=== PATIENT | female | born 1985 | race Caucasian/White ===

== ENCOUNTER 2017-12-23 16:17 | Inpatient (IN) | payer BC ==
[~2017-12-23] VITALS: Ht 161.3 cm; Wt 80.3 kg
[~2017-12-23 16:17] MED LIST: DOX100 PO; FAMO-1 PO; FLU150 PO; NAP550 PO; NO MEDS; PAN40 PO; PER PO; PRO25 PO
[2017-12-23 17:10] LABS: PLATELET COUNT, AUTOMATED 247 K/uL (150-450)
[2017-12-23 17:30] VITALS: BP 157/90; Ht 161.3 cm; Wt 80.3 kg
[2017-12-23] MEDS ORDERED: PREN-127 PO (17:43)
[2017-12-23] MEDS ORDERED: COLL1POW (17:43)
[2017-12-23] MEDS ORDERED: ZOLPIDEM TARTRATE 5 MG TAB PO PRN (19:10)
[2017-12-23] MEDS ORDERED: cefOXitin/DEX(*) 2GM/50ML PREM 50 ML IVPB PRN (19:10)
[2017-12-23] MEDS ORDERED: LIDOCAINE/SOD BICARB 8.4% SYR SC PRN (19:10)
[2017-12-23] MEDS ORDERED: TERBUTALINE SULF 1 MG/ML VIAL SUBQ PRN (19:10)
[2017-12-23] MEDS ORDERED: LIDOCAINE 1% LOCAL 300 MG/30ML INJ PRN (19:10)
[2017-12-23] MEDS ORDERED: METOCLOPRAMIDE 10 MG/2 ML SDV IVP PRN (19:10)
[2017-12-23] MEDS ORDERED: OXYTOCIN 30 UNIT/D5LR 500 ML 500 ML IV PRN (19:10)
[2017-12-23] MEDS ORDERED: DINOPROSTONE 10 MG INSERT PV ONE (19:10)
[2017-12-23] MEDS ORDERED: FLUSH 10 ML SYR IVP PRN (19:10)
[2017-12-23] MEDS ORDERED: LR(*) 1000 ML BAG 1,000 ML IV PRN (19:10)
[2017-12-23] MEDS ORDERED: FAMOTIDINE(*) 20MG/50ML PREMIX 50 ML IVPB PRN (19:10)
--- NOTE | 2017-12-23 21:07 | History & Physical ---
History of Present Illness Age of Patient: 32 : 1 Para or TPAL: 0 EDC per LMP: Jan 11, 2018 Estimated Gestational Age: 37.2 Chief Complaint hypertension in History of Present Illness Presented to office today for routine care. Reported that over the weekend and especially yesterday was not feeling herself, feeling bloated, swollen, fatigued and "off". Her BP in office today was elevated with SBP of 170. Her prior visits have all been normal and her BP has not been elevated prior. She denies having a severe headache or any RUQ abdominal pain or visual changes. Her last cervix exam was last week: 1cm/50% and GBS positive. She was sent to labor and delivery for evaluation. has been uncomplicated and her health is good although there was a mention of a cervical polyp and her last pap was 05/2017 and negative. She is Rh negative. Past Medical, Surgical, Family and Obstetric Histories reviewed. Please see ACOG chart. History Patient's Blood Type: A Negative Rubella Status: Immune Group B Strep Screen: Positive Past Medical History: cervical polyp Allergies: Coded Allergies: No Known Drug Allergies (Verified , 05/20/07) Med Rec Home Meds Reported Medications Collagen, Hydrolysate (Bovine) (Collagen Hydrolysate) 100 % Powder 12/23/17 Vits W-Ca,Fe,Fa(<1MG) ( VITAMINS) 1 Each Tablet, 1 EACH PO DAILY, TAB 12/23/17 [No Meds] No Conflict Check 05/20/07 Discontinued Reported Medications Pantoprazole Sod (Protonix) 40 Mg Tabec, 40 MG PO QDAY 05/20/07 Famotidine (Pepcid) 20 Mg Tablet, 20 MG PO BID 05/20/07 Oxycodone/Acetaminophen (OXYCODONE/ACETAMINOPHEN 5MG/325 MG) 5 Mg/325 Mg Tab, 1 TAB PO Q4-6H 05/20/07 Promethazine Hcl (Phenergan) 25 Mg Tab, 25 MG PO Q6H 05/20/07 Oxycodone/Acetaminophen (OXYCODONE/ACETAMINOPHEN 5MG/325 MG) 5 Mg/325 Mg Tab, 0 PO Q6H, #20 1 TABLET EVERY 6 HOURS NEEDED FOR MODERATE PAIN 05/20/07 Naproxen Sodium (Anaprox Ds) 550 Mg Tab, 550 MG PO BID, #20 1 TAB TWICE A DAY NEEDED FOR PAIN 05/20/07 Doxycycline Hyclate (Vibramycin) 100 Mg Cap, 100 MG PO BID for 10 Days 1 TAB TWICE A DAY FOR 10 DAYS 05/20/07 Fluconazole (Diflucan) 150 Mg Tab, 150 MG PO ONCE 1 DOSE 05/20/07 Review of Systems Other as per HPI Exam General Exam Vital Signs Vital Signs Date Time Temp Pulse Resp B/P (MAP) Pulse Ox O2 Delivery O2 Flow Rate FiO2 12/23/17 17:30 97.9 79 18 157/90 (112) 96 Room Air General Apperance: Alert/Awake/No Acute Distress Neuro: No Gross deficits, Other Cardiovascular: Regular Rate and Rhythm Respiratory: No Respiratory Distress, Clear to Auscultation Abdomen: Soft, Non-Tender, Non-Distended, RUQ Non-Tender, Other (vtx by elvis) : Normal Extremities: Reflexes (3+), Edema (2+) Integumentary: Skin Intact without Lesions or Rash Psychological: Alert & Oriented X3, Appropriate Mood & Affect Vaginal Discharge/Fluid?: Bloody Show Cervical Dialation: 1.5 Cervical Effacement (%): 75 Cervical Consistency: Soft Cervical Position: Posterior Presentation: Vertex Uterine Contractions(Q min): 2 Uterine Contraction Strength: Mild Fetus Heart Tone Variabilty: Moderate FHT Accelerations: 15X15 FHT Category: I Medical Decision Making Data Points Result Diagram: 12/23/17 1659 12/23/17 165 Hematology Test 12/23/17 16:50 12/23/17 16:59 Urine Random Creatinine 10.0 mg/dl Urine Random Total Protein 25 mg/dl (<11) Red Blood Count 4.17 M/uL (4.17-5.56) Mean Corpuscular Volume 88.7 fL (80.0-96.0) Mean Corpuscular Hemoglobin 31.1 pg (26.0-33.0) Mean Corpuscular Hemoglobin Concent 35.1 g/dL (32.0-36.0) Red Cell Distribution Width 13.2 % (11.5-14.5) Mean Platelet Volume 8.6 fL (7.2-11.1) Neutrophils (%) (Auto) 77.7 % (39.4-72.5) Lymphocytes (%) (Auto) 14.1 % (17.6-49.6) Monocytes (%) (Auto) 6.9 % (4.1-12.4) Eosinophils (%) (Auto) 0.8 % (0.4-6.7) Basophils (%) (Auto) 0.5 % (0.3-1.4) Nucleated RBC Relative Count (auto) 0.0 /100WBC Neutrophils # (Auto) 11.0 K/uL (2.0-7.4) Lymphocytes # (Auto) 2.0 K/uL (1.3-3.6) Monocytes # (Auto) 1.0 K/uL (0.3-1.0) Eosinophils # (Auto) 0.1 K/uL (0.0-0.5) Basophils # (Auto) 0.1 K/uL (0.0-0.1) Nucleated RBC Absolute Count (auto) 0.00 K/uL Sodium Level 133 mmol/L (137-145) Potassium Level 3.8 mmol/L (3.5-5.0) Chloride Level 102 mmol/L (98-107) Carbon Dioxide Level 24 mmol/L (22-31) Blood Urea Nitrogen 11 mg/dl (7-18) Creatinine 0.60 mg/dl (0.52-1.04) Glomerular Filtration Rate Calc > 60.0 Random Glucose 80 mg/dl (75-110) Uric Acid 5.1 mg/dl (2.5-7.5) Calcium Level 8.9 mg/dl (8.4-10.2) Total Bilirubin 0.2 mg/dl (0.2-1.3) Aspartate Amino Transf (AST/SGOT) 37 U/L (0-35) Alanine Aminotransferase (ALT/SGPT) 48 U/L (0-56) Alkaline Phosphatase 133 U/L (0-126) Lactate Dehydrogenase 521 U/L (0-590) Total Protein 5.4 g/dl (6.3-8.2) Albumin 2.9 g/dl (3.5-5.0) Chemistry Test 12/23/17 16:50 12/23/17 16:59 Urine Random Creatinine 10.0 mg/dl Urine Random Total Protein 25 mg/dl (<11) White Blood Count 14.2 k/uL (4.5-11.0) Red Blood Count 4.17 M/uL (4.17-5.56) Hemoglobin 13.0 g/dL (12.0-16.0) Hematocrit 37.0 % (34.0-47.0) Mean Corpuscular Volume 88.7 fL (80.0-96.0) Mean Corpuscular Hemoglobin 31.1 pg (26.0-33.0) Mean Corpuscular Hemoglobin Concent 35.1 g/dL (32.0-36.0) Red Cell Distribution Width 13.2 % (11.5-14.5) Platelet Count 247 K/uL (150-450) Mean Platelet Volume 8.6 fL (7.2-11.1) Neutrophils (%) (Auto) 77.7 % (39.4-72.5) Lymphocytes (%) (Auto) 14.1 % (17.6-49.6) Monocytes (%) (Auto) 6.9 % (4.1-12.4) Eosinophils (%) (Auto) 0.8 % (0.4-6.7) Basophils (%) (Auto) 0.5 % (0.3-1.4) Nucleated RBC Relative Count (auto) 0.0 /100WBC Neutrophils # (Auto) 11.0 K/uL (2.0-7.4) Lymphocytes # (Auto) 2.0 K/uL (1.3-3.6) Monocytes # (Auto) 1.0 K/uL (0.3-1.0) Eosinophils # (Auto) 0.1 K/uL (0.0-0.5) Basophils # (Auto) 0.1 K/uL (0.0-0.1) Nucleated RBC Absolute Count (auto) 0.00 K/uL Glomerular Filtration Rate Calc > 60.0 Uric Acid 5.1 mg/dl (2.5-7.5) Calcium Level 8.9 mg/dl (8.4-10.2) Total Bilirubin 0.2 mg/dl (0.2-1.3) Aspartate Amino Transf (AST/SGOT) 37 U/L (0-35) Alanine Aminotransferase (ALT/SGPT) 48 U/L (0-56) Alkaline Phosphatase 133 U/L (0-126) Lactate Dehydrogenase 521 U/L (0-590) Total Protein 5.4 g/dl (6.3-8.2) Albumin 2.9 g/dl (3.5-5.0) Urinalysis Test 12/23/17 16:50 Urine Random Creatinine 10.0 mg/dl Urine Random Total Protein 25 mg/dl (<11) VTE Prophylasis: Adult Deep Vein Thrombosis/Pulmonary: No Pharmacological Contraindicati: Pt at Low Risk for VTE Mechanical Contraindications: Pt at Low Risk for VTE Assessment and Plan Problems: (1) Pre-eclampsia during in third trimester, antepartum Assessment & Plan: No severe features as of yet. Slight 3 point elevation in her AST, normal platelets, but significant proteinuria meeting criteria for pre- eclampsia and induction. Will consider magnesium if she develops severe features. Will recheck the labs in the AM. Developed a plan for Cervidil ripening overnight followed by Pitocin in the AM. Reviewed risks and benefits of delivery and plan with pt and her . They understand the objectives and goals of her treatment plan and risk of worsening and as a consequence if needed. (2) Rh negative state in antepartum period Assessment & Plan: Received Rhogam in September. Will give as indicated. (3) Group B streptococcal carriage complicating Assessment & Plan: PCN prophylaxis. CECILIA GROVE MD Dec 23, 2017 21:07
[2017-12-24] MEDS ORDERED: PENICILLIN G 5 MILLUN/100 ML 100 ML ONE (00:13)
[2017-12-24] MEDS ORDERED: PENICILLIN G 5 MILLUN/100 ML 100 ML IVPB ONE (00:15)
[2017-12-24] MEDS: PENICILLIN G 2.5 MILLUN/100 ML 100 ML IVPB SCH ×4 (04:03→17:09)
[2017-12-24] MEDS ORDERED: OXYTOCIN 30 UNIT/D5LR 500 ML 500 ML IV PRN (06:13)
[2017-12-24 07:11] LABS: PLATELET COUNT, AUTOMATED 240 K/uL (150-450)
[2017-12-24] MEDS: fentaNYL CITR 100 MCG/2 ML AMP IVP PRN ×3 (17:53→21:22)
[2017-12-24] MEDS ORDERED: ONDANSETRON 4 MG/2 ML VIAL IVP PRN (19:40)
[2017-12-24] MEDS ORDERED: PENICILLIN G 2.5 MILLUN/100 ML 100 ML IVPB SCH (20:00)
[2017-12-24] MEDS ORDERED: FENTANYL/ROPIVACAINE 100 ML BAG EPI PRN (21:55)
[2017-12-24] MEDS ORDERED: LIDOCAINE/PF 2% 200MG/10ML AMP 200 MG/10 ML AMPUL EPI PRN (21:55)
[2017-12-24] MEDS ORDERED: ePHEDrine 25 MG/5 ML DISP.SYR IVP PRN (21:55)
[2017-12-24] MEDS ORDERED: LIDO/EPI 2% MPF 1:200,000 20ML EPI PRN (21:55)
[2017-12-24] MEDS ORDERED: fentaNYL CITR 100 MCG/2 ML AMP IT PRN (21:55)
[2017-12-24] MEDS ORDERED: BUPIVACAINE 0.25% MPF INJ EPI PRN (21:55)
[2017-12-24] MEDS ORDERED: EPIDURAL KEYS XX PRN (22:00)
--- NOTE | 2017-12-24 22:35 | Labor Progress Note ---
Labor Subjective Progress Notes Subjective Doing good. Reports no headaches or visual changes. "Getting tired, requesting epidural. Feeling Movement?: No Vaginal Discharge/Fluid: Clear Fluid Labor Pain: Moderate Neurological: No Headache, No Other Eyes: No Visual Disturbances Labor Objective Vital Signs Vital Signs Date Time Temp Pulse Resp B/P (MAP) Pulse Ox O2 Delivery O2 Flow Rate FiO2 12/23/17 17:30 97.9 79 18 157/90 (112) 96 Room Air Vaginal Discharge/Fluid?: Bloody Show, Clear Fluid Cervical Dialation: 4 Cervical Effacement (%): 80 Cervical Consistency: Soft Cervical Position: Anterior Station: -2 Presentation: Vertex Uterine Contractions(Q min): 3 Uterine Contraction Strength: Moderate UC Resting Tone: Soft Fetus Heart Tone Variabilty: Moderate FHT Accelerations: 15X15 FHT Decelerations: None FHT Category: I Other Result Diagram: 12/24/17 0703 12/24/17 0703 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 Will increase oxytocin to get adequete MVU. OLENA PARIKH DO Dec 24, 2017 22:35
--- NOTE | 2017-12-25 01:59 | Anesthesia OB Pre-Anes Eval ---
History of Present Illness Anesthesia Start Date: Dec 25, 2017 Anesthesia Start Time: 00:45 OB Anesthesia Diagnosis: gestational hypertension, induction - medical Current Complication: gestational hypertention, other (Severe edema in feet & back) Complications: None known EDC: Jan 09, 2018 : 1 Para: 0 Vital Signs: Vital Signs Date Time Temp Pulse Resp B/P (MAP) Pulse Ox O2 Delivery O2 Flow Rate FiO2 12/23/17 17:30 97.9 79 18 157/90 (112) 96 Room Air Pain Ratin Heart Tones: WNL Result Diagram: 12/24/17 0712/24/17702 Height (Inches): 63.50 Weight (Pounds): 177 BMI Calculated: 30.86 Past Medical History Attended Childbirth Classes?: No Hx Anesthesia Reactions: No Hx Family Anesthesia Reaction: No Current Medications: pitocin, pain medication (Fentenyl IV) Home Meds Reported Medications Collagen, Hydrolysate (Bovine) (Collagen Hydrolysate) 100 % Powder 12/23/17 Vits W-Ca,Fe,Fa(<1MG) ( VITAMINS) 1 Each Tablet, 1 EACH PO DAILY, TAB 12/23/17 [No Meds] No Conflict Check 05/20/07 Discontinued Reported Medications Pantoprazole Sod (Protonix) 40 Mg Tabec, 40 MG PO QDAY 05/20/07 Famotidine (Pepcid) 20 Mg Tablet, 20 MG PO BID 05/20/07 Oxycodone/Acetaminophen (OXYCODONE/ACETAMINOPHEN 5MG/325 MG) 5 Mg/325 Mg Tab, 1 TAB PO Q4-6H 05/20/07 Promethazine Hcl (Phenergan) 25 Mg Tab, 25 MG PO Q6H 05/20/07 Oxycodone/Acetaminophen (OXYCODONE/ACETAMINOPHEN 5MG/325 MG) 5 Mg/325 Mg Tab, 0 PO Q6H, #20 1 TABLET EVERY 6 HOURS NEEDED FOR MODERATE PAIN 05/20/07 Naproxen Sodium (Anaprox Ds) 550 Mg Tab, 550 MG PO BID, #20 1 TAB TWICE A DAY NEEDED FOR PAIN 05/20/07 Doxycycline Hyclate (Vibramycin) 100 Mg Cap, 100 MG PO BID for 10 Days 1 TAB TWICE A DAY FOR 10 DAYS 05/20/07 Fluconazole (Diflucan) 150 Mg Tab, 150 MG PO ONCE 1 DOSE 05/20/07 Allergies: Coded Allergies: No Known Drug Allergies (Verified , 05/20/07) Anesthesia OB ROS Neurological: No migraines/headaches, No seizures, No neuropathy Eyes ROS: other (wearing glasses) ENT: Denies Tooth caps, Denies Loose teeth, Denies Chipped teeth, Denies Dentures, Denies Bridges, Denies Retainers, Denies Veneers, Denies Implants, Denies Tongue ring Pulmonary: No asthma, No smoker (pks/day/yrs), other (Pt. states she has had resp problems last 3 weeks.) Airway Class: ll Cardiovascular ROS: No edema, No arrhythmia, other GI ROS: clear liquids Last Solids Date: Dec 24, 2017 Last Solids Time: 07:00 ROS: No Herpes, No STD(s), No Liver Disease, No Renal Disease Endocrine ROS: No diabetes, No gestational diabetes, No thyroid disorder Musculoskeletal ROS: No low back pain, No low back injury, No scoliosis, No other ASA Classification: 2 Assessment and Plan Anesthesia Plan: CSE Assessment Past Medical, Surgical, Family and Obstetric Histories reviewed. Please see ACOG chart. Epidural anesthesia risks, complications and benefits explained to patient's satisfaction for labor and vaginal delivery and/or section. General anesthesia risks and benefits explained to patient's satisfaction. Pt. states she had wanted to do labor "all natural" but has now changed her mind. Questions invited, none asked. NANDA XAVIER CRNA Dec 25, 2017 01:59
[2017-12-25] MEDS ORDERED: BUPIVACAINE 0.5% INJ 30ML VIAL ONE (02:09)
--- NOTE | 2017-12-25 02:18 | Procedure Note ---
Anesthetic Placement Note Permit for Anesthesia Signed: Yes Anesthesia Technique: Patient Sitting Anesthesia Prep: Chlorhexidine Interspace: L 3-4 Local Anesthetic: 1% Lidocaine, 25 Gauge Needle Amount Local - cc's: 3 Anesthesia Needle: 17g Touhy/Schliff Anesthesia Attempts: 1 Loss of Resistance: Air Depth of DALE (cm): 6 Epidural Needle Placement: No CSF, No Blood, No Parasthesia Intrathecal Needle: 27 Gauge Pencan Cerebral Spinal Fluid: Yes, Clear Catheter Insertion (cm): 8 Catheter Type: Welch - Spring Wound Epidural Dressing: Tegaderm, Tape, Adhesive Vaughan Anesthesia Tray: Lot Number ([id number]), Expiration Date (2019-01-20), Reference Number ([id number]) Anesthesia Medications: Intrathecal Dose: mcg Fentanyl (15), mg Marcaine MPF (1.75), Time (0104) Epidural Test Dose: 1.5 Lido/Epi (1:200,000), Dose - mL (2), Time (0123), Negative Epidural Loading Dose: 0.2% Ropivicaine, With Fentanyl 2mcg/ml, Dose - ml (6), Time (0124) Epidural Infusion: 0.2% Ropivicaine, With Fentanyl 2mcg/ml, Start Time: (0124) Epidural Pump Setting: Bolus Dose - mL (5), Lockout - Minutes (20), Maintenance Rate - mL/hr (6), Maximum per Hour - mL (21) Complications: None Comment: Became comfortable within 5-10 minutes. Encouraged to sleep. NANDA XAVIER CRNA Dec 25, 2017 02:18
--- NOTE | 2017-12-25 02:20 | Anesthesia Progress Note ---
Progress/Maintenance Anesthesia Note Date: Dec 25, 2017 Anesthesia Note Time: 02:00 Pain Intensity: 0 Pump: On Pump Rate (ML/HR): 3 Sensory Level: T-12 Motor Level: Bending Knees-Bilateral Dilatation: 10 Position: Semi-Fowlers Assessment and Plan Assessment Complete in dilation. Pump decreased to 3 ml/hr as pt. does not feel contractions. Being instructed in pushing by NANDA DARDEN CRNA Dec 25, 2017 02:20
--- NOTE | 2017-12-25 05:15 | Anesthesia Progress Note ---
Progress/Maintenance Anesthesia Note Date: Dec 25, 2017 Anesthesia Note Time: 05:00 Pain Intensity: 7 Pump: On Pump Rate (ML/HR): 5 Sensory Level: L4 Motor Level: Bending Knees-Bilateral Dilatation: 10 Position: Right, Tilt Drug Bolus: 0.5% Marcaine (4 ml), Other (Fentenyl 60 ml) Assessment and Plan Assessment Pt. feeling very tired from pushing, requesting more medication. Plan: to "labor down". Bolus given, Pump rate increased to 5 ml/hr. Anesthesia Stop Day: Dec 25, 2017 NANDA XAVIER CRNA Dec 25, 2017 05:15
--- NOTE | 2017-12-25 06:02 | Labor Progress Note ---
Labor Subjective Progress Notes Subjective Pt getting tired, but not feeling any change in pressure. 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 Pt started pushing around that time. Pushed so far for 2 hours. Pt had epidural rebolused. Will "labor down for about 1 hour as long as fetus tolerates laboring down and then resume pushing. Pt was counseled for operative vaginal delivery vs . She desires to rest for 0.5-1 hours and then attempt to resume pushing. Pt desires vaginal or operative vaginal delivery if possible. Pt's exam changed minimally since she started pushing, change in caput only. Difficult to feel position secondary to caput. Based on lack of descent informed the patient that in my opinion vaginal delivery is going to be difficult. Pt desires to continue with labor down and attempt. OLENA PARIKH DO Dec 25, 2017 06:02
[2017-12-25] MEDS ORDERED: CARBOPROST TROMETHAM 250MCG/ML IM ONLY ONE (09:10)
--- NOTE | 2017-12-25 09:51 | Anesthesia Progress Note ---
Progress/Maintenance Anesthesia Note Date: Dec 25, 2017 Anesthesia Note Time: 09:38 Pain Intensity: 0 Pump: Off Motor Level: Bending Knees-Bilateral Dilatation: 10 Position: Semi-Fowlers Drug Bolus: 0.5% Marcaine (5 ml), Other (Fentenyl 25 mcgs) Assessment and Plan Assessment Pt. pushing. Bolus with 0.5% Marcaine plain for delivery. Pt. was able to push well and had excellent tolerance for delivery and repair work. Empty syringe attached to epidural catheter and RN agrees to remove with ambulation of pt. Anesthesia Stop Day: Dec 25, 2017 Anesthesia Stop Time: 09:30 NANDA XAVIER CRNA Dec 25, 2017 09:51
[2017-12-25] MEDS ORDERED: INFLUENZA VIRUS VAC 0.5 ML SYR IM ONLY ONE (10:00)
[2017-12-25] MEDS ORDERED: GLYCERIN/WITCH HAZEL LEAF 1 PK TP PRN (10:00)
[2017-12-25] MEDS ORDERED: BENZOCAINE 20% 60 ML BTL TP PRN (10:00)
[2017-12-25] MEDS ORDERED: MAGNESIUM HYDROXIDE* 30ML UDCP PO PRN (10:00)
[2017-12-25] MEDS ORDERED: ACETAMINOPHEN 325 MG TAB PO PRN (10:00)
[2017-12-25] MEDS ORDERED: APAP/HYDROCODONE 325/5 TAB PO PRN (10:00)
[2017-12-25] MEDS ORDERED: LANOLIN OINT 7 GM TUBE TP PRN (10:00)
[2017-12-25] MEDS ORDERED: HYDROCORTISONE 2.5% CR 30GM TB PR PRN (10:00)
--- NOTE | 2017-12-25 10:18 | OB Delivery Note ---
Delivery Note Vaginal Delivery Type: Spont. Vaginal Delivery Delivery Date: Dec 25, 2017 Delivery Time: 09:26 Estimated Gestational Age(wks): 37 Delivery Anesthesia: Epidural Sex: Female Infant Weight (gms): 2795 Repair Needed: Laceration, Labial (left), 1st Degree Estimated Blood Loss: 100 Delivery Complications: Laceration Notes: Presented for IOL due to preeclampsia. Underwent Cervidil ripening on 12/23/17 at 1.5 cm progressing to 3 cm by morning of 12/24. By 1500 she had changed to 4cm but did not progress through that night but also was not getting an aggressive Pitocin stimulation due to evidence of tachysystole. IUPC placed at 2220 and adequate contraction pattern noted. Discussed operative delivery by c/ s and another check revealed 7cm. Epidural placed at 0100 on 12/25 and pt then resting. Progressed to 10 cm by 0200 and a period of pushing initiated. Very little progress made with pushing so allowed to rest and labor down. Pushing reinitiated at 0730 and progress noted. Brought baby to in MACO position. Perineum stabilized while delivered over first degree and left labia minora laceration. Placenta delivered intact and spontaneous and uterus massaged firm. Repair successful with 2-0 chromic for the first degree and 3-0 chromic for the labia reconstruction. BP remained stable in mild range. No complications. 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
[2017-12-25] MEDS: IBUPROFEN 800 MG TAB PO SCH ×2 (15:21→23:12)
[2017-12-25 18:00] VITALS: BP 130/70
[2017-12-25 20:10] VITALS: BP 150/75
[2017-12-25] MEDS: DOCUSATE CALCIUM 240 MG CAP PO SCH (20:28)
[2017-12-26 01:30] VITALS: BP 122/67
[2017-12-26 07:30] VITALS: BP 126/85
--- NOTE | 2017-12-26 08:11 | OB/GYN Progress Note ---
OB Subjective Progress Notes Subjective Doing well. Pain controlled and rested now. Bladder seems to be working well. BP mild since delivery. GI: NEG Nausea : Voiding Well Pain: Mild OB Objective Physical Exam Vital Signs Date Time Temp Pulse Resp B/P (MAP) Pulse Ox O2 Delivery O2 Flow Rate FiO2 12/26/17 01:30 98.7 82 18 122/67 (85) 93 Room Air General Appearance: Alert/Awake/No Acute Distress Neurological: No Gross deficits, Other Cardiovascular: Normal Rhythm & Peripheral Pulses, Regular Rate and Rhythm Respiratory: No Respiratory Distress, Clear to Auscultation Abdomen: Soft, Non-Tender, Non-Distended, Fundus Firm, Non-Tender Extremities: Reflexes (3+), Edema (2+) Integumentary: Skin Intact without Lesions or Rash Psychological: Alert & Oriented X3, Appropriate Mood & Affect Result Diagram: 12/26/17 0607 12/24/17 0703 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 Continuing to monitor (2) Rh negative state in antepartum period (3) Group B streptococcal carriage complicating (4) care and examination immediately after delivery Assessment & Plan: Possible home later today. Will base on baby's readiness. Will need to do BP check next week when goes home. CECILIA GROVE MD Dec 26, 2017 08:11
[2017-12-26] MEDS: IBUPROFEN 800 MG TAB PO SCH ×2 (08:43→17:18)
[2017-12-26] MEDS: DOCUSATE CALCIUM 240 MG CAP PO SCH ×2 (08:43→21:10)
[2017-12-26] MEDS ORDERED: MEASLES,MUMP,RUBELLA VAC 0.5ML SUBQ ONE (10:00)
[2017-12-26] MEDS ORDERED: DIPHTH/TETANUS/ACEL. PERTUSSIS IM ONLY ONE (10:00)
[2017-12-26 12:00] VITALS: BP 145/80
--- NOTE | 2017-12-26 13:05 | Anesthesia Post Eval Note ---
Anesthesia Post Eval Note Vital Signs Date Time Temp Pulse Resp B/P (MAP) Pulse Ox O2 Delivery O2 Flow Rate FiO2 12/26/17 12:00 99.1 78 20 145/80 (101) 97 Room Air Pt able to participate in Eval: Yes Cardiovascular Status: Satisfactory Respiratory Status: Satisfactory Pain Managment: Satisfactory PO Nausea/Vomiting: Satisfactory Temperature Management: Satisfactory Mental Status: Satisfactory, Alert, Oriented X3 Post-Op Hydration Status: Satisfactory, Tolerating PO Well, Voiding w/o Difficulty Anesthesia Type: CSE Anesthesia Tolerance: Pt. has baby sleeping on her chest at moment. RN agrees to observe epidural puncture site when she ambulates. Tolerated procedure well without apparent anesthetic complications. Denies headache or any residual paresthesia. Vital Signs Stable, Patient comfortable and condition stable. NANDA XAVIER CRNA Dec 26, 2017 13:05
[2017-12-26 15:00] VITALS: BP 124/76
[2017-12-26 20:45] VITALS: BP 138/83
[2017-12-27] MEDS: IBUPROFEN 800 MG TAB PO SCH ×2 (00:36→09:00)
[2017-12-27] MEDS ORDERED: LOR5/325 PO (02:06)
[2017-12-27] MEDS ORDERED: IBUP800T37 PO (02:06)
[2017-12-27 04:30] VITALS: BP 133/77
[2017-12-27 07:21] VITALS: BP 149/93
[2017-12-27] MEDS: DOCUSATE CALCIUM 240 MG CAP PO SCH (09:00)
--- NOTE | 2017-12-27 11:03 | OB/GYN Progress Note ---
OB Subjective Progress Notes Subjective Doing well. Pain controlled with oral medications. Tolerating regular diet. Ambulating. Voiding. Normal lochia. No preeclampsia symptoms. Pumping well, baby is in nursery and awaiting cultures. OB Objective Physical Exam Vital Signs Date Time Temp Pulse Resp B/P (MAP) Pulse Ox O2 Delivery O2 Flow Rate FiO2 12/27/17 07:21 98.4 82 18 149/93 (111) Room Air 12/26/17 20:45 96 Intake and Output 12/28/17 06:59 Intake Total 240 ml Balance 240 ml Intake Oral 240 ml General Appearance: Alert/Awake/No Acute Distress Neurological: No Gross deficits Eyes: Normal Extraocular Movement & Vison Neck: No Masses Cardiovascular: Normal Rhythm & Peripheral Pulses, Regular Rate and Rhythm Respiratory: No Respiratory Distress, Clear to Auscultation Abdomen: Soft, Non-Tender, Non-Distended, Fundus Firm Extremities: Reflexes (2+ per RN), Edema (1+ per RN) Integumentary: Skin Intact without Lesions or Rash Psychological: Alert & Oriented X3, Appropriate Mood & Affect Result Diagram: 12/26/17 0607 12/24/17 0703 Assessment and Plan Problems: (1) Pre-eclampsia during in third trimester, antepartum Assessment & Plan: BP are okay, no need for medications at this time. No preeclampsia symptoms. Will plan daily BP checks while in the hospital rooming- in. Plan for visit at [facility] in 1 week or sooner as needed. (2) examination following vaginal delivery Assessment & Plan: PPD#2 s/p . Meeting milestones. Plan for discharge to rooming-in status. As long as she is here, will do daily BP checks with RN. Discussed routine expectations. Questions answered. Follow up in clinic in 1wk for BP check. SHANITA APARICIO MD Dec 27, 2017 10:57
--- NOTE | 2017-12-27 11:04 | OB/GYN Discharge Summary ---
Discharge Summary Reason for Hosp/Final Diag: (1) Pre-eclampsia during in third trimester, antepartum Hospital Course & Plan: BP are okay, no need for medications at this time. No preeclampsia symptoms. Will plan daily BP checks while in the hospital rooming- in. Plan for visit at [facility] in 1 week or sooner as needed. (2) examination following vaginal delivery Hospital Course & Plan: PPD#2 s/p . Meeting milestones. Plan for discharge to rooming-in status. As long as she is here, will do daily BP checks with RN. Discussed routine expectations. Questions answered. Follow up in clinic in 1wk for BP check. [facility]ates Vital Signs Vital Signs Date Time Temp Pulse Resp B/P (MAP) Pulse Ox O2 Delivery O2 Flow Rate FiO2 12/27/17 07:21 98.4 82 18 149/93 (111) Room Air 12/26/17 20:45 96 Weight (Pounds): 177 Result Diagram: 12/26/1707 12/24/17 0703 Condition: Improved Discharge: Home, Self Residential Meds Active Scripts Hydrocodone Bit/Acetaminophen (HYDROCODON-ACETAMINOPHEN 5-325) 1 Each Tablet, 1 EACH PO Q6H Y for pain, #20 TAB 0 Refills Prov:SHANITA APARICIO MD 12/27/17 Reported Medications Collagen, Hydrolysate (Bovine) (Collagen Hydrolysate) 100 % Powder 12/23/17 Vits W-Ca,Fe,Fa(<1MG) ( VITAMINS) 1 Each Tablet, 1 EACH PO DAILY, TAB 12/23/17 [No Meds] No Conflict Check 05/20/07 Discontinued Reported Medications Pantoprazole Sod (Protonix) 40 Mg Tabec, 40 MG PO QDAY 05/20/07 Famotidine (Pepcid) 20 Mg Tablet, 20 MG PO BID 05/20/07 Oxycodone/Acetaminophen (OXYCODONE/ACETAMINOPHEN 5MG/325 MG) 5 Mg/325 Mg Tab, 1 TAB PO Q4-6H 05/20/07 Promethazine Hcl (Phenergan) 25 Mg Tab, 25 MG PO Q6H 05/20/07 Oxycodone/Acetaminophen (OXYCODONE/ACETAMINOPHEN 5MG/325 MG) 5 Mg/325 Mg Tab, 0 PO Q6H, #20 1 TABLET EVERY 6 HOURS NEEDED FOR MODERATE PAIN 05/20/07 Naproxen Sodium (Anaprox Ds) 550 Mg Tab, 550 MG PO BID, #20 1 TAB TWICE A DAY NEEDED FOR PAIN 05/20/07 Doxycycline Hyclate (Vibramycin) 100 Mg Cap, 100 MG PO BID for 10 Days 1 TAB TWICE A DAY FOR 10 DAYS 05/20/07 Fluconazole (Diflucan) 150 Mg Tab, 150 MG PO ONCE 1 DOSE 05/20/07 Follow up Referrals: [employer] - In One Week @ [facility] with Chase Peck Md Discharge Diet: As Tolerates Discharge Activity: Pelvic Rest SHANITA APARICIO MD Dec 27, 2017 11:04
== END 2017-12-27 12:43 | disposition home or self-care (01) | DRG 775 ==
LOC: OB 16:17
PROVIDERS: ADMIT Obstetrics & Gynecology; ATTEND Obstetrics & Gynecology
PROC: 10E0XZZ Delivery of Products of Conception, External Approach (ICD-10-PCS; principal; 2017-12-25)
PROC: 0HQ9XZZ Repair Perineum Skin, External Approach (ICD-10-PCS; 2017-12-25)
PROC: 10H07YZ Insertion of Other Device into Products of Conception, Via Natural or Artificial Opening (ICD-10-PCS; 2017-12-25)
PROC: 4A1H74Z Monitoring of Products of Conception, Cardiac Electrical Activity, Via Natural or Artificial Opening (ICD-10-PCS; 2017-12-25)
PROC: 3E0P7VZ Introduction of Hormone into Female Reproductive, Via Natural or Artificial Opening (ICD-10-PCS; 2017-12-25)
DX: O14.04 Mild to moderate pre-eclampsia, complicating childbirth (principal); O36.0130 Maternal care for anti-D [Rh] antibodies, third trimester, not applicable or unspecified; O99.824 Streptococcus B carrier state complicating childbirth; Z3A.37 37 weeks gestation of pregnancy; Z37.0 Single live birth; O70.0 First degree perineal laceration during delivery
CPT/HCPCS: 36415; 82040; 82247; 82310; 82374; 82435; 82565; 82570; 82947; 83615; 84075; 84132; 84155; 84156; 84295; 84450; 84460; 84520; 84550; 85025; 85027; 85461; 86850; 86870; 86900; 86901; J2405; J2540; J2590; J2791; J3010; J7120; S0020